=== PATIENT | female | born 1940 | race Caucasian/White ===

== ENCOUNTER 2017-12-01 18:27 | Emergency (ER) | payer MEDICARE, OTHER ==
[2017-12-01 19:05] VITALS: BP 153/76; PULSE 74; RESP 18; TEMP 97.8
[2017-12-01] MEDS ORDERED: traMADol 50 MG TAB PO STA (19:23)
--- NOTE | 2017-12-01 20:02 | ED ---
Lower Extremity Injury HPI - General Chief Complaint: Extremity Injury, Lower Stated Complaint: Right leg pain Time Seen by Provider: 12/01/17 19:15 Source: patient, family, RN notes reviewed Mode of arrival: wheelchair Limitations: no limitations - History of Present Illness Initial Comments: 76-year-old female presents emergency Department chief complaint of right knee pain. Patient states has been bothersome over the last 1 week with no injury. Patient states that she feels some fullness and pain behind her right knee. Patient has no history DVT denies any trauma. Patient does admit that she had a arthritis. Patient states she recently had some right leg pain that she had physical therapy for. Patient denies any paresthesias. Patient denies any redness to her knee, fever, chills. Patient denies any other complaints at this time. She does admit that she has chronic back issues. - Related Data Previous Rx's Medication Instructions Recorded predniSONE 50 mg PO DAILY #5 tab 12/01/17 Allergies Allergy/AdvReac Type Severity Reaction Status Date / Time No Known Allergies Allergy Verified 12/01/17 19:00 Review of Systems ROS Statement: Those systems with pertinent positive or pertinent negative responses have been documented in the HPI. ROS Other: All systems not noted in ROS Statement are negative. Past Medical History Past Medical History: Heart Failure, Hyperlipidemia, Hypertension, Osteoarthritis (OA) History of Any Multi-Drug Resistant Organisms: None Reported Past Surgical History: No Surgical Hx Reported Past Psychological History: No Psychological Hx Reported Smoking Status: Former smoker Past Alcohol Use History: None Reported Past Drug Use History: None Reported General Exam Limitations: no limitations General appearance: alert, in no apparent distress Head exam: Present: atraumatic, normocephalic, normal inspection Eye exam: Present: normal appearance, PERRL, EOMI. Absent: scleral icterus, conjunctival injection, periorbital swelling Neck exam: Present: normal inspection, full ROM. Absent: tenderness, meningismus, lymphadenopathy Respiratory exam: Present: normal lung sounds bilaterally. Absent: respiratory distress, wheezes, rales, rhonchi, stridor Cardiovascular Exam: Present: regular rate, normal rhythm, normal heart sounds. Absent: systolic murmur, diastolic murmur, rubs, gallop, clicks Extremities exam: Present: other (Right knee and she does have some pain with range of motion though no erythema no significant swelling, neurovascular intact patient does have some pain with logrolling of her leg into her hip but she has good range of motion) Neurological exam: Present: alert, CN II-XII intact, reflexes normal. Absent: motor sensory deficit Course Vital Signs 12/01/17 19:00 Temperature 97.8 F Pulse Rate 74 Respiratory 18 Rate Blood Pressure 153/76 O2 Sat by Pulse 98 Oximetry Medical Decision Making - Medical Decision Making 76 year-old female presents emergency department for right knee pain. Patient ultrasound x-ray shows osteoarthritis and she does have small fluid collection. 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 Patient will be started on tramadol and follow-up with Dr. Newton her orthopedic physician. Disposition Clinical Impression: Right knee pain, Osteoarthritis Disposition: HOME SELF-CARE Condition: Stable Instructions: Knee Pain (ED) Additional Instructions: Please return to the Emergency Department if symptoms worsen or any other concerns. Prescriptions: predniSONE 50 mg PO DAILY #5 tab Is patient prescribed a controlled substance at d/c from ED?: No Referrals: None,Stated [Primary Care Provider] - 1-2 days Jorge Luis Grey MD [STAFF PHYSICIAN] - 1-2 days Time of Disposition: 20:34
--- NOTE | 2017-12-01 20:07 | US ---
EXAMINATION TYPE: US venous doppler duplex LE RT DATE OF EXAM: 12/01/2017 7:56 PM COMPARISON: NONE CLINICAL HISTORY: Pain. SIDE PERFORMED: Right TECHNIQUE: The lower extremity deep venous system is examined utilizing real time linear array sonog luiz with graded compression, doppler sonography and color-flow sonography. VESSELS IMAGED: External Iliac Vein (EIV) Common Femoral Vein Deep Femoral Vein Greater Saphenous Vein * Femoral Vein Popliteal Vein Small Saphenous Vein * Proximal Calf Veins (* superficial vessels) Patient unable to adduct leg. Technically difficult. Right Leg: Negative for DVT IMPRESSION: No evidence of deep venous thrombosis in the right leg.
--- NOTE | 2017-12-01 20:09 | XR ---
EXAMINATION TYPE: XR knee complete RT DATE OF EXAM: 12/01/2017 COMPARISON: NONE HISTORY: Knee pain TECHNIQUE: 3 views FINDINGS: I see no fracture nor dislocation. There is mild spurring in the patella. There is no sign of knee joint effusion. There is vascular calcification. IMPRESSION: No acute abnormality of the right knee.
[2017-12-01] MEDS ORDERED: traMADol 50 MG STARTER PACK 3 TAB BTL PO STA (20:34)
== END 2017-12-01 20:51 | disposition home or self-care (01) ==
LOC: EC 18:27
DX: M17.11 Unilateral primary osteoarthritis, right knee (principal); M79.604 Pain in right leg; Z87.891 Personal history of nicotine dependence
CPT/HCPCS: 99284

== ENCOUNTER 2018-03-02 15:30 | Inpatient (IN) | payer MEDICARE, OTHER ==
--- NOTE | 2018-03-02 16:00 | ED ---
General Adult HPI <Shannan Fonseca - Last Filed: 03/02/18 18:14> <Kristopher Zhu - Last Filed: 03/02/18 21:12> - General Stated complaint: knee pain Time Seen by Provider: 03/02/18 15:38 - History of Present Illness Initial comments: Patient is a 77-year-old female who presents the emergency department with complaint of bilateral knee pain. She reports the right knee has had a cyst in the past for which she came to the emergency department in November of last year. She reports that the left knee began hurting about a week ago. She denies any trauma or injury. Denies any history of blood clots. Patient denies any recent fever, chills, shortness of breath, chest pain, back pain, abdominal pain, nausea or vomiting, numbness or tingling, headaches or visual changes, or any other complaints. (Shannan Fonseca) - Related Data Previous Rx's Medication Instructions Recorded predniSONE 50 mg PO DAILY #5 tab 12/01/17 Naproxen [Naprosyn] 500 mg PO BID #20 tablet 03/02/18 Allergies Allergy/AdvReac Type Severity Reaction Status Date / Time No Known Allergies Allergy Verified 03/02/18 15:59 Review of Systems ROS Other: All systems not noted in ROS Statement are negative. <Shannan Fonseca - Last Filed: 03/02/18 18:14> ROS Other: All systems not noted in ROS Statement are negative. <Kristopher Zhu - Last Filed: 03/02/18 21:12> ROS Statement: Those systems with pertinent positive or pertinent negative responses have been documented in the HPI. Past Medical History Past Medical History: Heart Failure, Hyperlipidemia, Hypertension, Osteoarthritis (OA) History of Any Multi-Drug Resistant Organisms: None Reported Past Surgical History: No Surgical Hx Reported Past Psychological History: No Psychological Hx Reported Smoking Status: Former smoker Past Alcohol Use History: None Reported Past Drug Use History: None Reported <Shannan Fonseca - Last Filed: 03/02/18 18:14> General Exam General appearance: alert, in no apparent distress Head exam: Present: atraumatic, normocephalic Eye exam: Present: normal appearance Respiratory exam: Present: normal lung sounds bilaterally. Absent: wheezes, rales, rhonchi Cardiovascular Exam: Present: regular rate, normal rhythm Extremities exam: Present: full ROM, tenderness (Bilateral knees.), normal capillary refill, calf tenderness (Bilateral.) Skin exam: Present: warm, dry <Shannan Fonseca - Last Filed: 03/02/18 18:14> Vital Signs 03/02/18 03/02/18 03/02/18 15:56 17:55 20:29 Temperature 97.4 F L 97.4 F L 97.6 F Pulse Rate 103 H 88 94 Respiratory 18 18 18 Rate Blood Pressure 91/54 113/57 113/56 O2 Sat by Pulse 94 L 96 95 Oximetry Medical Decision Making <Shannan Fonseca - Last Filed: 03/02/18 18:14> - Lab Data Result diagrams: 03/02/18 19:06 03/02/18 19:06 - Radiology Data Radiology results: image reviewed (Chest x-ray shows left upper lobe infiltrate. ) <Kristopher Zhu - Last Filed: 03/02/18 21:12> - Medical Decision Making X-ray of bilateral knees reveals mild bilateral medial compartment degenerative joint changes. Ultrasound venous doppler duplex bilateral lower extremities negative for DVT. Will prescribe naproxen. Will refer to orthopedics. Case discussed in detail with attending physician Dr. Zhu. (Shannan Fonseca) Patient was reevaluated by myself, Dr. Zhu. Patient has difficult time describing her symptoms. Patient complains of right knee pain which is somewhat chronic. Patient states she is having difficulty walking. Patient is unclear if an dilatory problems are from weakness or pain. Patient does have minimal bilateral upper extremity erythema near the humerus region. It does feel somewhat warm. No other signs of rash. Patient does not have a fever at this time. Right knee without significant swelling. No warmth or erythema. There is mild tenderness. Ultrasound and x-rays are negative. Further evaluation showed some elevation of white blood cell count. Further elevation shows left upper lobe infiltrate on chest x-ray. Patient does meet sepsis criteria diagnosed at 9:11 PM. Blood culture and IV antibiotics and lactic acid will all be ordered. Patient and family are updated. Case was discussed in detail with practitioner melanie Arguelles for Dr. Ferreira, who will admit for hospital call. (Kristopher Zhu) - Lab Data Lab Results 03/02/18 03/02/18 03/02/18 Range/Units 19:06 19:06 19:06 WBC 16.9 H (3.8-10.6) k/uL RBC 4.43 (3.80-5.40) m/uL Hgb 14.3 (11.4-16.0) gm/dL Hct 41.8 (34.0-46.0) % MCV 94.3 (80.0-100.0) fL MCH 32.3 (25.0-35.0) pg MCHC 34.3 (31.0-37.0) g/dL RDW 13.3 (11.5-15.5) % Plt Count 132 L (150-450) k/uL Neutrophils % 90 % Lymphocytes % 4 % Monocytes % 4 % Eosinophils % 1 % Basophils % 0 % Neutrophils # 15.2 H (1.3-7.7) k/uL Lymphocytes # 0.7 L (1.0-4.8) k/uL Monocytes # 0.6 (0-1.0) k/uL Eosinophils # 0.2 (0-0.7) k/uL Basophils # 0.1 (0-0.2) k/uL Sodium 139 (137-145) mmol/L Potassium 4.0 (3.5-5.1) mmol/L Chloride 106 (98-107) mmol/L Carbon Dioxide 24 (22-30) mmol/L Anion Gap 9 mmol/L BUN 34 H (7-17) mg/dL Creatinine 1.52 H (0.52-1.04) mg/dL Est GFR (CKD-EPI)AfAm 37 (>60 ml/min/1.73 sqM) Est GFR (CKD-EPI)NonAf 32 (>60 ml/min/1.73 sqM) Glucose 136 H (74-99) mg/dL Calcium 9.6 (8.4-10.2) mg/dL Total Bilirubin 1.1 (0.2-1.3) mg/dL AST 18 (14-36) U/L ALT 26 (9-52) U/L Alkaline Phosphatase 43 (38-126) U/L C-Reactive Protein 62.7 H (<10.0) mg/L Total Protein 7.5 (6.3-8.2) g/dL Albumin 4.2 (3.5-5.0) g/dL Disposition Is patient prescribed a controlled substance at d/c from ED?: No Time of Disposition: 18:12 <Shannan Fonseca - Last Filed: 03/02/18 18:14> Decision Time: 21:12 <Kristopher Zhu - Last Filed: 03/02/18 21:12> Clinical Impression: Knee pain, bilateral, Pneumonia, Sepsis Disposition: ADMITTED IP TO THIS [facility] Condition: Good Instructions (If sedation given, give patient instructions): Knee Pain (ED) Additional Instructions: Follow-up with your PCP in 1-2 days. Follow-up with orthopedics in 1-2 days. Return to the emergency department if your symptoms worsen or other concerns. Prescriptions: Naproxen [Naprosyn] 500 mg PO BID #20 tablet Referrals: Ibrahima Baker MD [REFERRING] - 1-2 days None,Stated [Primary Care Provider] - 1-2 days Bc Gambino, [Medical Doctor] - 1-2 days Addendum entered and electronically signed by Shannan Fonseca PA-C 20:06: When the nurse brought in the discharge paperwork, the patient's family stated that they were concerned about taking the patient home (she lives with her daughter) as she cannot walk (she normally walks with a walker). The patient was not discharged. She was given Toradol for pain, which the patient reported helped. Addendum entered and electronically signed by Shannan Fonseca PA-C 20:31: Patient will be admitted with consult to orthopedics, social work and PT/OT.
--- NOTE | 2018-03-02 16:17 | XR ---
EXAMINATION TYPE: XR knee complete bilateral DATE OF EXAM: 03/02/2018 COMPARISON: Right knee 12/01/2017 HISTORY: Pain bilateral knees TECHNIQUE: 3 views each knee FINDINGS: Right knee: Mild narrowing of the medial compartment joint space is present. No acute fractures are e vident. No joint effusion is evident. Vascular calcification is noted. Left knee: Mild narrowing of the medial compartment joint space is present. No acute fractures are ev ident. Vascular calcification is present. No joint effusion is evident. IMPRESSION: 1. Mild bilateral medial compartment degenerative joint changes.
--- NOTE | 2018-03-02 17:22 | US ---
EXAMINATION TYPE: US venous doppler duplex LE BI DATE OF EXAM: 03/02/2018 5:10 PM COMPARISON: US CLINICAL HISTORY: Pain. Bilateral leg pain SIDE PERFORMED: Bilateral TECHNIQUE: The lower extremity deep venous system is examined utilizing real time linear array sonog luiz with graded compression, doppler sonography and color-flow sonography. VESSELS IMAGED: External Iliac Vein (EIV) Common Femoral Vein Deep Femoral Vein Greater Saphenous Vein * Femoral Vein Popliteal Vein Proximal Calf Veins (* superficial vessels) Right Leg: Negative for DVT Left Leg: Negative for DVT IMPRESSION: No evidence of deep venous thrombosis in both legs.
[2018-03-02] MEDS ORDERED: KETOROLAC 60 MG/2 ML VIAL IM STA (18:42)
[2018-03-02] MEDS ORDERED: KETOROLAC 30 MG/ML 1 ML VIAL IVP STA (19:11)
[2018-03-02 19:20] LABS: Basophils # (A) 0.1 k/uL (0-0.2); Basophils % (A) 0 %; Eosinophils # (A) 0.2 k/uL (0-0.7); Eosinophils % (A) 1 %; HCT 41.8 % (34.0-46.0); HGB 14.3 gm/dL (11.4-16.0); Lymphocytes # (A) 0.7 k/uL (1.0-4.8); Lymphocytes % (A) 4 %; MCH 32.3 pg (25.0-35.0); MCHC 34.3 g/dL (31.0-37.0); MCV 94.3 fL (80.0-100.0); Mean Platelet Volume 8.1; Monocytes # (A) 0.6 k/uL (0-1.0); Monocytes % (A) 4 %; Neutrophils # (A) 15.2 k/uL (1.3-7.7); Neutrophils % (A) 90 %; Platelet Count 132 k/uL (150-450); RBC 4.43 m/uL (3.80-5.40); RDW 13.3 % (11.5-15.5); WBC 16.9 k/uL (3.8-10.6)
[2018-03-02 19:47] LABS: Albumin 4.2 g/dL (3.5-5.0); Calcium 9.6 mg/dL (8.4-10.2); Total Bilirubin 1.1 mg/dL (0.2-1.3); Total Protein 7.5 g/dL (6.3-8.2)
[2018-03-02] MEDS ORDERED: ACETAMINOPHEN TAB 325 MG TAB PO PRN (20:15)
[2018-03-02] MEDS ORDERED: NALOXONE 0.4 MG/ML 1 ML VIAL IV PRN (20:15)
--- NOTE | 2018-03-02 20:43 | XR ---
EXAMINATION TYPE: XR chest 2V DATE OF EXAM: 03/02/2018 COMPARISON: NONE HISTORY: Chest pain TECHNIQUE: Frontal and lateral views of the chest are obtained. FINDINGS: There is no heart failure nor confluent pneumonic infiltrate. Costophrenic angles are steven r. There is coarsening of the lung markings. There is some mild infiltrate above the left pulmonary h ilum. Thoracic aorta is atheromatous. IMPRESSION: Mild pulmonary fibrosis. Mild left upper lobe pneumonia.
[2018-03-02] MEDS: SODIUM CHLORIDE 0.9% 1,000 ML IV SCH (21:02)
[2018-03-02] MEDS ORDERED: PNEUMONIA PROTOCOL UTILIZED 1 EACH MISC PO PRN (21:12)
[2018-03-02] MEDS ORDERED: AZITHROMYCIN 500 MG in SODIUM CHLORIDE 0.9% 250 ML IVPB STA (21:16)
[2018-03-02] MEDS ORDERED: SODIUM CHLORIDE 0.9% 1,000 ML IV STA ×2 (22:35)
[2018-03-02] MEDS ORDERED: SODIUM CHLORIDE 0.9% 500 ML 600 ML IV STA (22:35)
--- NOTE | 2018-03-02 22:40 | ED ---
Medical Decision Making - Medical Decision Making Call for elevated lactic acid. Patient was reevaluated. No significant change from previous evaluation. IV fluid bolus was ordered and started at 10:25 PM. - Lab Data Result diagrams: 03/02/18 19:06 03/02/18 19:06 Lab Results 03/02/18 03/02/18 03/02/18 Range/Units 19:06 19:06 19:06 WBC 16.9 H (3.8-10.6) k/uL RBC 4.43 (3.80-5.40) m/uL Hgb 14.3 (11.4-16.0) gm/dL Hct 41.8 (34.0-46.0) % MCV 94.3 (80.0-100.0) fL MCH 32.3 (25.0-35.0) pg MCHC 34.3 (31.0-37.0) g/dL RDW 13.3 (11.5-15.5) % Plt Count 132 L (150-450) k/uL Neutrophils % 90 % Lymphocytes % 4 % Monocytes % 4 % Eosinophils % 1 % Basophils % 0 % Neutrophils # 15.2 H (1.3-7.7) k/uL Lymphocytes # 0.7 L (1.0-4.8) k/uL Monocytes # 0.6 (0-1.0) k/uL Eosinophils # 0.2 (0-0.7) k/uL Basophils # 0.1 (0-0.2) k/uL ESR (0-20) mm/hr Sodium 139 (137-145) mmol/L Potassium 4.0 (3.5-5.1) mmol/L Chloride 106 (98-107) mmol/L Carbon Dioxide 24 (22-30) mmol/L Anion Gap 9 mmol/L BUN 34 H (7-17) mg/dL Creatinine 1.52 H (0.52-1.04) mg/dL Est GFR (CKD-EPI)AfAm 37 (>60 ml/min/1.73 sqM) Est GFR (CKD-EPI)NonAf 32 (>60 ml/min/1.73 sqM) Glucose 136 H (74-99) mg/dL Calcium 9.6 (8.4-10.2) mg/dL Total Bilirubin 1.1 (0.2-1.3) mg/dL AST 18 (14-36) U/L ALT 26 (9-52) U/L Alkaline Phosphatase 43 (38-126) U/L C-Reactive Protein 62.7 H (<10.0) mg/L Total Protein 7.5 (6.3-8.2) g/dL Albumin 4.2 (3.5-5.0) g/dL 03/02/18 Range/Units 19:06 WBC (3.8-10.6) k/uL RBC (3.80-5.40) m/uL Hgb (11.4-16.0) gm/dL Hct (34.0-46.0) % MCV (80.0-100.0) fL MCH (25.0-35.0) pg MCHC (31.0-37.0) g/dL RDW (11.5-15.5) % Plt Count (150-450) k/uL Neutrophils % % Lymphocytes % % Monocytes % % Eosinophils % % Basophils % % Neutrophils # (1.3-7.7) k/uL Lymphocytes # (1.0-4.8) k/uL Monocytes # (0-1.0) k/uL Eosinophils # (0-0.7) k/uL Basophils # (0-0.2) k/uL ESR 13 (0-20) mm/hr Sodium (137-145) mmol/L Potassium (3.5-5.1) mmol/L Chloride (98-107) mmol/L Carbon Dioxide (22-30) mmol/L Anion Gap mmol/L BUN (7-17) mg/dL Creatinine (0.52-1.04) mg/dL Est GFR (CKD-EPI)AfAm (>60 ml/min/1.73 sqM) Est GFR (CKD-EPI)NonAf (>60 ml/min/1.73 sqM) Glucose (74-99) mg/dL Calcium (8.4-10.2) mg/dL Total Bilirubin (0.2-1.3) mg/dL AST (14-36) U/L ALT (9-52) U/L Alkaline Phosphatase (38-126) U/L C-Reactive Protein (<10.0) mg/L Total Protein (6.3-8.2) g/dL Albumin (3.5-5.0) g/dL Disposition Clinical Impression: Knee pain, bilateral, Pneumonia, Sepsis Disposition: ADMITTED IP TO THIS HOSP Condition: Good Is patient prescribed a controlled substance at d/c from ED?: No Procedures - Sepsis Sepsis Focused Exam #1 Time Sepsis Criteria Met: 21:11 Sepsis Focused Exam Date: 03/02/18 Sepsis Focused Exam Time: 22:39 Sepsis Focused Exam Complete: Yes Vital Signs & RN Notes Reviewed: Yes Capillary Refill: < 2 Seconds: Fingers, Toes Peripheral Pulses: Normal: Radial (R), Radial (L) Skin Color: Normal for Patient, Erythema (Patient still has some mild erythema of bilateral upper arm) Respiratory Exam: normal lung sounds Cardiovascular Exam: regular rate, normal rhythm
[2018-03-03 00:54] LABS: Appearance,Urine Cloudy (Clear); Bacteria,Urine Occasional /hpf; Bilirubin,Urine Negative (Negative); Blood,Urine Trace (Negative); Color,Urine Yellow; Glucose,Urine (UA) Negative (Negative); Ketones,Urine Negative (Negative); Leukocyte Esterase,Urine Moderate (Negative); Mucus,Urine Rare /hpf; Nitrite,Urine Negative (Negative); Protein,Urine Negative (Negative); RBC,Urine 1 /hpf (0-5); Specific Gravity,Urine 1.013 (1.001-1.035); Squamous Epithelial Cell,Urine 6 /hpf (0-4); Urobilinogen,Urine <2.0 mg/dL (<2.0); WBC,Urine 14 /hpf (0-5)
[2018-03-03 01:17] VITALS: BMI 31.9
[2018-03-03] MEDS: SODIUM CHLORIDE 0.9% 1,000 ML IV SCH ×5 (01:21→18:52)
[2018-03-03 07:12] LABS: Basophils % (A) 0 %; Eosinophils % (A) 0 %; HCT 35.3 % (34.0-46.0); HGB 11.7 gm/dL (11.4-16.0); Lymphocytes # (A) 1.1 k/uL (1.0-4.8); Lymphocytes % (A) 8 %; MCH 31.6 pg (25.0-35.0); MCHC 33.1 g/dL (31.0-37.0); MCV 95.4 fL (80.0-100.0); Mean Platelet Volume 7.6; Monocytes # (A) 0.6 k/uL (0-1.0); Monocytes % (A) 5 %; Neutrophils # (A) 10.7 k/uL (1.3-7.7); Neutrophils % (A) 85 %; Platelet Count 110 k/uL (150-450); RDW 13.1 % (11.5-15.5); WBC 12.6 k/uL (3.8-10.6)
[2018-03-03 07:34] LABS: Calcium 8.4 mg/dL (8.4-10.2); Potassium 3.8 mmol/L (3.5-5.1); Total Bilirubin 0.8 mg/dL (0.2-1.3); Total Protein 5.7 g/dL (6.3-8.2)
--- NOTE | 2018-03-03 12:24 | XR ---
EXAMINATION TYPE: XR chest 2V DATE OF EXAM: 03/03/2018 HISTORY: pneumonia. REFERENCE: Previous study dated 03/02/2018. FINDINGS: There is a worsening left upper lobe infiltrate. The heart is upper limits of normal in siz e. Pleural spaces are clear. IMPRESSION: WORSENING LEFT UPPER LOBE PNEUMONIA.
[2018-03-03] MEDS: AZITHROMYCIN 500 MG TAB PO SCH (21:49)
[2018-03-04] MEDS: SODIUM CHLORIDE 0.9% 1,000 ML IV SCH ×3 (03:24→23:26)
[2018-03-04 07:16] LABS: Basophils % (A) 0 %; Eosinophils # (A) 0.1 k/uL (0-0.7); Eosinophils % (A) 1 %; HGB 11.8 gm/dL (11.4-16.0); Lymphocytes % (A) 19 %; MCH 31.1 pg (25.0-35.0); MCHC 32.7 g/dL (31.0-37.0); MCV 95.1 fL (80.0-100.0); Mean Platelet Volume 7.7; Monocytes # (A) 0.5 k/uL (0-1.0); Monocytes % (A) 4 %; Neutrophils # (A) 7.9 k/uL (1.3-7.7); Neutrophils % (A) 74 %; Platelet Count 122 k/uL (150-450); RBC 3.79 m/uL (3.80-5.40); RDW 13.3 % (11.5-15.5); WBC 10.7 k/uL (3.8-10.6)
[2018-03-04 07:36] LABS: Calcium 8.6 mg/dL (8.4-10.2)
--- NOTE | 2018-03-04 09:16 | P.HPIM ---
History of Present Illness H&P Date: 03/03/18 68-year-old female came to ER with compensative unable to are bilaterally pain does have severe osteoarthritis of bilateral knees patient was comparing of serious fatigue lethargy patient is found to have leukocytosis no fever although chest x-ray there appears to be a pneumonia and patient is complaining of cough but unable to bring up anything. Patient used to be a smoker quit long time ago. Patient is also found to be in acute renal failure patient is presently receiving IV fluids, Lasix and the RADHA inhibitor being held patient is bit hypotensive as well. Review of Systems REVIEW OF SYSTEMS: CONSTITUTIONAL: As mentioned in HPI HEENT: No recent visual problems or hearing problems. Denied any sore throat. CARDIOVASCULAR: No chest pain, orthopnea, PND, no palpitations, no syncope. PULMONARY: No shortness of breath, no cough, no hemoptysis. GASTROINTESTINAL: No diarrhea, no nausea, no vomiting, no abdominal pain. NEUROLOGICAL: No headaches, no weakness, no numbness. HEMATOLOGICAL: Denies any bleeding or petechiae. GENITOURINARY: Denies any burning micturition, frequency, or urgency. MUSCULOSKELETAL/RHEUMATOLOGICAL: As mentioned in HPI ENDOCRINE: Denies any polyuria or polydipsia. The rest of the 14-point review of systems is negative. Past Medical History Past Medical History: Heart Failure, Hyperlipidemia, Hypertension, Osteoarthritis (OA), Pneumonia, Renal Disease, Rheumatoid Arthritis (RA) Additional Past Medical History / Comment(s): stage 4 kidney disease History of Any Multi-Drug Resistant Organisms: None Reported Past Surgical History: No Surgical Hx Reported Past Anesthesia/Blood Transfusion Reactions: No Reported Reaction Past Psychological History: No Psychological Hx Reported Smoking Status: Former smoker Past Alcohol Use History: None Reported Past Drug Use History: None Reported Medications and Allergies Home Medications Medication Instructions Recorded Confirmed Type Acetaminophen [Tylenol Arthritis] 650 mg PO DAILY 03/02/18 03/02/18 History Aspirin [[place] Aspirin EC] 81 mg PO DAILY 03/02/18 03/02/18 History Enalapril [Vasotec] 10 mg PO DAILY 03/02/18 03/02/18 History Ergocalciferol (Vitamin D2) 50,000 unit PO [id number] 03/02/18 03/02/18 History [Drisdol] Furosemide [Lasix] 40 mg PO DAILY 03/02/18 03/02/18 History Lovastatin [Mevacor] 40 mg PO HS 03/02/18 03/02/18 History Allergies Allergy/AdvReac Type Severity Reaction Status Date / Time No Known Allergies Allergy Verified 03/02/18 22:55 Physical Exam Vitals: Vital Signs Temp Pulse Resp BP Pulse Ox 03/04/18 07:49 97.6 F 87 20 170/74 94 L 03/04/18 07:44 17 03/04/18 06:25 71 17 146/67 96 03/03/18 22:27 98.3 F 71 17 135/60 96 03/03/18 16:00 96.7 F L 77 18 118/56 92 L 03/03/18 12:00 97.3 F L 70 18 115/56 94 L Intake and Output 03/03/18 03/04/18 03/04/18 22:59 06:59 14:59 Intake Total 300 550 240 Balance 300 550 240 Intake: Intake, IV Titration 300 550 Amount Sodium Chloride 0.9% 1, 300 550 000 ml @ 100 mls/hr IV . Q10H [facility] Rx#:[id number] Oral 240 Other: Voiding Method Bedpan Bedpan Bedpan Diaper Diaper Diaper # Voids 1 1 Weight 87.5 kg PHYSICAL EXAMINATION: GENERAL: The patient is alert and oriented x3, not in any acute distress. Well developed, well nourished. HEENT: Pupils are round and equally reacting to light. EOMI. No scleral icterus. No conjunctival pallor. Normocephalic, atraumatic. No pharyngeal erythema. No thyromegaly. CARDIOVASCULAR: S1 and S2 present. No murmurs, rubs, or gallops. PULMONARY: Chest is clear to auscultation, no wheezing or crackles. ABDOMEN: Soft, nontender, nondistended, normoactive bowel sounds. No palpable organomegaly. MUSCULOSKELETAL: Does have severe osteoarthritis and swelling of boththere is no signs or symptoms of septic arthritis EXTREMITIES: No cyanosis, clubbing, or pedal edema. NEUROLOGICAL: Gross neurological examination did not reveal any focal deficits. SKIN: No rashes. Results CBC & Chem 7: 03/04/18 06:40 03/04/18 06:40 Labs: Abnormal Lab Results - Last 24 Hours (Table) 03/04/18 03/04/18 Range/Units 06:40 06:40 WBC 10.7 H (3.8-10.6) k/uL RBC 3.79 L (3.80-5.40) m/uL Plt Count 122 L (150-450) k/uL Neutrophils # 7.9 H (1.3-7.7) k/uL Chloride 117 H (98-107) mmol/L Carbon Dioxide 19 L (22-30) mmol/L BUN 23 H (7-17) mg/dL Creatinine 1.10 H (0.52-1.04) mg/dL Microbiology - Last 24 Hours (Table) 03/02/18 21:28 Blood Culture - Preliminary Blood No Growth after 24 hours Thrombosis Risk Factor Assmnt - Choose All That Apply Any of the Below Risk Factors Present?: Yes Each Factor Represents 1 point: Obesity (BMI >25), Swollen legs (current) Other Risk Factors: Yes Each Risk Factor Represents 3 Points: Age 75 years or older Other congenital or acquired thrombophilia - If yes, enter type in comment: No Thrombosis Risk Factor Assessment Total Risk Factor Score: 5 Thrombosis Risk Factor Assessment Level: High Risk Assessment and Plan Plan: -Possible community-acquired right upper lobe pneumonia: Patient will be continued on Rocephin and azithromycin. -Acute renal failure: Prerenal azotemia from sepsis intravascular depletion from diuretics and RADHA inhibitor, hold off on a similar to continue with IV fluids hold off on diuretics -Bilaterally pain secondary to severe prostatitis patient has multi-joint arthritis involving the small joints of the hands. Patient may benefit from my intra-articular steroid injection because of which are orthopedic surgery was consulted for anemia -Hyperlipidemia -Hypertension patient is presently hypotensive because of which will hold off on RADHA inhibitor continue with IV fluids. Patient will need pharmacologic DVT prophylaxis
--- NOTE | 2018-03-04 09:48 | P.CNOR ---
History of Present Illness - [facility] Consult date: 03/04/18 Consult reason: other (Inability to ambulate) History of present illness: The patient is a pleasant 77-year-old female who was admitted through the emergency department with complaints of weakness and inability to ambulate. She was at home walking with her walker and felt her legs give out. She did not not fall and denies any recent injury. She states she normally gets around well with her walker and denies instability or frequent falls. She denies recent chelsey illness, fevers or chills but states that for a few weeks she has been feeling a little run down and not quite herself. She reports mild soreness in her knees but states this is at baseline. She lives at home with her daughter who works nights. Past Medical History Past Medical History: Heart Failure, Hyperlipidemia, Hypertension, Osteoarthritis (OA), Pneumonia, Renal Disease, Rheumatoid Arthritis (RA) Additional Past Medical History / Comment(s): stage 4 kidney disease History of Any Multi-Drug Resistant Organisms: None Reported Past Surgical History: No Surgical Hx Reported Past Anesthesia/Blood Transfusion Reactions: No Reported Reaction Past Psychological History: No Psychological Hx Reported Smoking Status: Former smoker Past Alcohol Use History: None Reported Past Drug Use History: None Reported Medications and Allergies Home Medications Medication Instructions Recorded Confirmed Type Acetaminophen [Tylenol Arthritis] 650 mg PO DAILY 03/02/18 03/02/18 History Aspirin [[place] Aspirin EC] 81 mg PO DAILY 03/02/18 03/02/18 History Enalapril [Vasotec] 10 mg PO DAILY 03/02/18 03/02/18 History Ergocalciferol (Vitamin D2) 50,000 unit PO [id number] 03/02/18 03/02/18 History [Drisdol] Furosemide [Lasix] 40 mg PO DAILY 03/02/18 03/02/18 History Lovastatin [Mevacor] 40 mg PO HS 03/02/18 03/02/18 History Allergies Allergy/AdvReac Type Severity Reaction Status Date / Time No Known Allergies Allergy Verified 03/02/18 22:55 Physical Examination Examination of the bilateral lower extremities reveals no gross deformity or malalignment. No ecchymosis or erythema. No tenderness palpation circumferentially around both knees. There is no significant visible or palpable effusion. She is able to actively range both knees without pain. There is no gross instability with stress. Light touch sensation is intact across the distal dermatomes without focal deficit and is symmetric bilaterally. Motor test reveals good strength with dorsiflexion and plantarflexion which is symmetric bilaterally. No clonus. Babinski testing reveals flexor response bilaterally. No pain with logroll or passive circumduction of bilateral hips. Results X-rays of bilateral knees were reviewed and interpreted from an orthopedic standpoint. These demonstrate no appreciable acute or healing fractures. No significant effusion. Mild tricompartmental degenerative changes with moderate medial joint space narrowing. Full assessment is limited due to nonweightbearing technique. Prominent vascular calcifications are noted. Impression: No acute osseous pathology - Labs Labs: Abnormal Lab Results - Last 24 Hours (Table) 03/04/18 03/04/18 Range/Units 06:40 06:40 WBC 10.7 H (3.8-10.6) k/uL RBC 3.79 L (3.80-5.40) m/uL Plt Count 122 L (150-450) k/uL Neutrophils # 7.9 H (1.3-7.7) k/uL Chloride 117 H (98-107) mmol/L Carbon Dioxide 19 L (22-30) mmol/L BUN 23 H (7-17) mg/dL Creatinine 1.10 H (0.52-1.04) mg/dL Microbiology - Last 24 Hours (Table) 03/02/18 21:28 Blood Culture - Preliminary Blood No Growth after 24 hours H & H 03/02/18 03/03/18 03/04/18 Range/Units 19:06 05:53 06:40 Hgb 14.3 11.7 11.8 (11.4-16.0) gm/dL Hct 41.8 35.3 36.0 (34.0-46.0) % Result Diagrams: 03/04/18 06:40 03/04/18 06:40 Assessment and Plan Assessment: Weakness and inability to ambulate-likely secondary to underlying sepsis/occult infection. (1) Unable to ambulate Current Visit: Yes Status: Acute Code(s): R26.2 - DIFFICULTY IN WALKING, NOT ELSEWHERE CLASSIFIED SNOMED Code(s): 854698962 Plan: I discussed the clinical and radiograph findings with the patient in detail. I do not feel that her inability to ambulate is due to primary musculoskeletal pathology but rather weakness due to an underlying systemic etiology. She is currently being treated for sepsis and acute renal failure. Barring any restrictions from the primary care team, I recommend continuing activity as tolerated. Since she is at increased risk of falls she should only get up with assist. She may weight-bear as tolerated with the assistance of a rolling walker. Continue physical therapy as she is able. Based on her exam, I do not feel she would benefit from corticosteroid injections at this time. Continue PRN oral analgesics. Thank you for allowing me to participate in the care of this patient. Bc Gambino D.O. [facility]
[2018-03-04] MEDS: LISINOPRIL 20 MG TAB PO SCH (09:51)
[2018-03-04] MEDS: FAMOTIDINE 20 MG TAB PO SCH (09:51)
--- NOTE | 2018-03-04 13:28 | P.PN ---
Subjective patient is being treated for right hilar pneumonia. Patient does have a bilateral severe osteoarthritis of the knees because of which patient is unable to relate probably will require interarticular steroid injection PT and OT evaluation possibility of discharge tomorrow to subacute rehabilitation patient is feeling much better compared to yesterday still quite a bit weak. Constitutional: Denied any fatigue denied any fever. Cardio vascular: denied any chest pain, palpitations Gastrointestinal denied any nausea vomiting Pulmonary: Denied any shortness of breath cough Neurologic denied any new focal deficits All inpatient medications were reviewed and appropriate changes in these medications as dictated in the interval history and assessment and plan. Objective - Vital Signs Vital signs: Vital Signs Temp 97.6 F 03/04/18 07:49 Pulse 87 03/04/18 07:49 Resp 20 03/04/18 07:49 BP 170/74 03/04/18 07:49 Pulse Ox 94 L 03/04/18 07:49 Intake & Output 03/03/18 03/04/18 03/04/18 18:59 06:59 18:59 Intake Total 1020 850 240 Balance 1020 850 240 Weight 87.5 kg Intake: Intake, IV Titration 800 850 Amount Sodium Chloride 0.9% 1, 800 850 000 ml @ 100 mls/hr IV . Q10H [facility] Rx#:[id number] Oral 220 240 Other: Voiding Method Bedpan Bedpan Bedpan Diaper Diaper Diaper # Voids 1 1 - Exam PHYSICAL EXAMINATION: GENERAL: The patient is alert and oriented x3, not in any acute distress. Well developed, well nourished. HEENT: Pupils are round and equally reacting to light. EOMI. No scleral icterus. No conjunctival pallor. Normocephalic, atraumatic. No pharyngeal erythema. No thyromegaly. CARDIOVASCULAR: S1 and S2 present. No murmurs, rubs, or gallops. PULMONARY: Chest is clear to auscultation, no wheezing or crackles. ABDOMEN: Soft, nontender, nondistended, normoactive bowel sounds. No palpable organomegaly. MUSCULOSKELETAL: Does have severe osteoarthritis and swelling of boththere is no signs or symptoms of septic arthritis EXTREMITIES: No cyanosis, clubbing, or pedal edema. NEUROLOGICAL: Gross neurological examination did not reveal any focal deficits. SKIN: No rashes. - Labs CBC & Chem 7: 03/04/18 06:40 03/04/18 06:40 Labs: Abnormal Lab Results - Last 24 Hours (Table) 03/04/18 03/04/18 Range/Units 06:40 06:40 WBC 10.7 H (3.8-10.6) k/uL RBC 3.79 L (3.80-5.40) m/uL Plt Count 122 L (150-450) k/uL Neutrophils # 7.9 H (1.3-7.7) k/uL Chloride 117 H (98-107) mmol/L Carbon Dioxide 19 L (22-30) mmol/L BUN 23 H (7-17) mg/dL Creatinine 1.10 H (0.52-1.04) mg/dL Microbiology - Last 24 Hours (Table) 03/02/18 21:28 Blood Culture - Preliminary Blood No Growth after 24 hours Assessment and Plan Plan: -Possible community-acquired right upper lobe pneumonia: Patient will be continued on Rocephin and azithromycin. -Acute renal failure: Prerenal azotemia from sepsis intravascular depletion from diuretics and RADHA inhibitor,patient's creatinine did improve patient will be resumed on RADHA inhibitor because of elevated blood pressure repeat the basic metabolic profile tomorrow -Hyperchloremia leading to metabolic acidosis -Hyperlipidemia -Hypertension patient is presently hypotensive because of which will hold off on RADHA inhibitor continue with IV fluids. -osteoarthritis of both knees: Intra-articular steroid injection -Generalized deconditioning Patient will need pharmacologic DVT prophylaxis
[2018-03-04] MEDS: AZITHROMYCIN 500 MG TAB PO SCH (20:35)
[2018-03-04] MEDS: HEPARIN SODIUM,PORCINE 5,000 UNIT/ML 1 ML VIAL SQ SCH (20:35)
[2018-03-04] MEDS: ATORVASTATIN 10 MG TAB PO SCH (20:35)
[2018-03-05 06:06] LABS: HCT 37.4 % (34.0-46.0); HGB 12.9 gm/dL (11.4-16.0); MCH 32.4 pg (25.0-35.0); MCHC 34.4 g/dL (31.0-37.0); MCV 94.2 fL (80.0-100.0); Mean Platelet Volume 8.3; Platelet Count 137 k/uL (150-450); RBC 3.97 m/uL (3.80-5.40)
[2018-03-05 06:26] LABS: Calcium 9.1 mg/dL (8.4-10.2); Potassium 3.6 mmol/L (3.5-5.1)
[2018-03-05] MEDS: SODIUM CHLORIDE 0.9% 1,000 ML IV SCH ×2 (09:23→10:35)
[2018-03-05] MEDS: HEPARIN SODIUM,PORCINE 5,000 UNIT/ML 1 ML VIAL SQ SCH ×2 (09:30→20:36)
[2018-03-05] MEDS: LISINOPRIL 20 MG TAB PO SCH (09:30)
[2018-03-05] MEDS: ASPIRIN 81 MG PO SCH (09:30)
[2018-03-05] MEDS: FAMOTIDINE 20 MG TAB PO SCH (09:30)
--- NOTE | 2018-03-05 12:52 | P.PN ---
Subjective patient is being treated for right hilar pneumonia. Patient does have a bilateral severe osteoarthritis of the knees because of which patient is unable to relate probably will require interarticular steroid injection PT and OT evaluation possibility of discharge tomorrow to subacute rehabilitation patient is feeling much better compared to yesterday still quite a bit weak. 03/05/2018 Patient has significant improvement in her respiratory status creatinine improved. Patient will benefit from intra-articular steroid injection, both knees. Will be discharged to subacute rehabilitation tomorrow, leukocytosis resolved, IV fluids will be discontinued Constitutional: Denied any fatigue denied any fever. Cardio vascular: denied any chest pain, palpitations Gastrointestinal denied any nausea vomiting Pulmonary: Denied any shortness of breath cough Neurologic denied any new focal deficits All inpatient medications were reviewed and appropriate changes in these medications as dictated in the interval history and assessment and plan. Objective - Vital Signs Vital signs: Vital Signs Temp 98.1 F 03/05/18 09:26 Pulse 68 03/05/18 09:26 Resp 18 03/05/18 09:26 BP 162/77 03/05/18 09:26 Pulse Ox 94 L 03/05/18 09:26 Intake & Output 03/04/18 03/05/18 03/05/18 18:59 06:59 18:59 Intake Total 1220 800 240 Output Total 2 200 Balance 1220 798 40 Weight 86 kg Intake: Intake, IV Titration 500 800 Amount Sodium Chloride 0.9% 1, 500 800 000 ml @ 100 mls/hr IV . Q10H [facility] Rx#:[id number] Oral 720 240 Output: Urine 200 Urine/Stool Mix 2 Other: Voiding Method Bedpan Bedpan Bedpan Diaper Diaper Diaper # Voids 2 1 3 # Bowel Movements 2 1 1 - Exam PHYSICAL EXAMINATION: GENERAL: The patient is alert and oriented x3, not in any acute distress. Well developed, well nourished. HEENT: Pupils are round and equally reacting to light. EOMI. No scleral icterus. No conjunctival pallor. Normocephalic, atraumatic. No pharyngeal erythema. No thyromegaly. CARDIOVASCULAR: S1 and S2 present. No murmurs, rubs, or gallops. PULMONARY: Chest is clear to auscultation, no wheezing or crackles. ABDOMEN: Soft, nontender, nondistended, normoactive bowel sounds. No palpable organomegaly. MUSCULOSKELETAL: Does have severe osteoarthritis and swelling of boththere is no signs or symptoms of septic arthritis EXTREMITIES: No cyanosis, clubbing, or pedal edema. NEUROLOGICAL: Gross neurological examination did not reveal any focal deficits. SKIN: No rashes. - Labs CBC & Chem 7: 03/05/18 05:04 03/05/18 05:04 Labs: Abnormal Lab Results - Last 24 Hours (Table) 03/05/18 03/05/18 Range/Units 05:04 05:04 Plt Count 137 L (150-450) k/uL Chloride 116 H (98-107) mmol/L Creatinine 1.06 H (0.52-1.04) mg/dL Microbiology - Last 24 Hours (Table) 03/02/18 21:28 Blood Culture - Preliminary Blood No Growth after 48 hours Assessment and Plan Plan: - community-acquired right upper lobe pneumonia: Patient will be continued on Rocephin and azithromycin. Improved now -Acute renal failure: Prerenal azotemia from sepsis intravascular depletion from diuretics and RADHA inhibitor,patient's creatinine did improve patient will be resumed on RADHA inhibitor because of elevated blood pressure , IV fluids will be discontinued now. -Hyperchloremia leading to metabolic acidosis, due to IV fluids which are being discontinued at this time -Hyperlipidemia -Hypertension patient is presently hypotensive because of which will hold off on RADHA inhibitor . -osteoarthritis of both knees: Intra-articular steroid injection as mentioned above -Generalized deconditioning: Patient will be discharged to subacute rehabilitation tomorrow Patient will need pharmacologic DVT prophylaxis
--- NOTE | 2018-03-05 19:38 | P.PN ---
Progress Note - Text Progress Note Date: 03/05/18 Progress Note - Orthopedic Surgery S: Patient states she's doing better. She was able to work with PT - was up to [facility] [place] [place] and performed limited ambulation in the room. Reports continued feelings of weakness and generalized pain (she specifically cites her hands). She denies significant knee pain - she states her pain and functional level (with regard to her knees) are at baseline and says they are not bothering her. Overall, she notes clinical improvement and is eager to discharge. O: PE - bilateral LE Bilateral knees show no erythema, calor or effusion No focal tenderness to palpation or significant joint line tenderness. No pain with AROM 0-110 degrees Pt is able to actively extend both knees fully without palpable crepitus. No pain or gross laxity with collateral stress. A: Moderate osteoarthritis of bilateral knees Physiologic weakness secondary to sepsis, community acquired pneumonia and acute renal failure P: I reviewed the clinical and radiographic findings with the patient in detail. Her MSK exam is benign and the patient does not feel her knees are contributing to her ambulation difficulty. We discussed the option of performing corticosteroid injections including the relative risks & benefits. Based on her description of her symptoms and present physical exam, I do not feel she would find significant benefit from injections at this time. She expressed understanding and agreement and is not interested in an further treatment for her knees at this time. She may continue activity as tolerated - recommend continued fall precautions and ambulation with assist only until strength returns She will likely benefit from continued PT/OT at rehab for strengthening and gait training. Ok to DC to [facility] from ortho standpoint.. Based on her present symptoms, no need for formal follow up. However, if she experiences knee pain in the future, she was encouraged to call for a follow up evaluation. Thank you for allowing me to participate in this patient's care. Bc Gambino D.O. [facility]
[2018-03-05] MEDS: AZITHROMYCIN 500 MG TAB PO SCH (20:35)
[2018-03-05] MEDS: ATORVASTATIN 10 MG TAB PO SCH (20:35)
[2018-03-06] MEDS: ASPIRIN 81 MG PO SCH (08:59)
[2018-03-06] MEDS: FAMOTIDINE 20 MG TAB PO SCH (08:59)
[2018-03-06] MEDS: HEPARIN SODIUM,PORCINE 5,000 UNIT/ML 1 ML VIAL SQ SCH ×2 (08:59→20:41)
[2018-03-06] MEDS: LISINOPRIL 20 MG TAB PO SCH (08:59)
[2018-03-06] MEDS: METOPROLOL TARTRATE 25 MG TAB PO SCH ×2 (11:05→20:41)
--- NOTE | 2018-03-06 15:15 | P.PN ---
Subjective patient is being treated for right hilar pneumonia. Patient does have a bilateral severe osteoarthritis of the knees because of which patient is unable to relate probably will require interarticular steroid injection PT and OT evaluation possibility of discharge tomorrow to subacute rehabilitation patient is feeling much better compared to yesterday still quite a bit weak. 03/05/2018 Patient has significant improvement in her respiratory status creatinine improved. Patient will benefit from intra-articular steroid injection, both knees. Will be discharged to subacute rehabilitation tomorrow, leukocytosis resolved, IV fluids will be discontinued 03/06/2018 patient is doing much better patient's creatinine improved. Patient will follow with the orthopedic surgery as an outpatient Constitutional: Denied any fatigue denied any fever. Cardio vascular: denied any chest pain, palpitations Gastrointestinal denied any nausea vomiting Pulmonary: Denied any shortness of breath cough Neurologic denied any new focal deficits All inpatient medications were reviewed and appropriate changes in these medications as dictated in the interval history and assessment and plan. Objective - Vital Signs Vital signs: Vital Signs Temp 97.6 F 03/06/18 08:25 Pulse 57 L 03/06/18 12:20 Resp 17 03/06/18 12:20 BP 162/75 03/06/18 12:20 Pulse Ox 95 03/06/18 12:20 Intake & Output 03/05/18 03/06/18 03/06/18 18:59 06:59 18:59 Intake Total 960 240 480 Output Total 200 Balance 760 240 480 Weight 85.5 kg Intake: Oral 960 240 480 Output: Urine 200 Other: Voiding Method Bedpan Bedside Commode Diaper # Voids 3 1 # Bowel Movements 1 - Exam PHYSICAL EXAMINATION: GENERAL: The patient is alert and oriented x3, not in any acute distress. Well developed, well nourished. HEENT: Pupils are round and equally reacting to light. EOMI. No scleral icterus. No conjunctival pallor. Normocephalic, atraumatic. No pharyngeal erythema. No thyromegaly. CARDIOVASCULAR: S1 and S2 present. No murmurs, rubs, or gallops. PULMONARY: Chest is clear to auscultation, no wheezing or crackles. ABDOMEN: Soft, nontender, nondistended, normoactive bowel sounds. No palpable organomegaly. MUSCULOSKELETAL: Does have severe osteoarthritis and swelling of boththere is no signs or symptoms of septic arthritis EXTREMITIES: No cyanosis, clubbing, or pedal edema. NEUROLOGICAL: Gross neurological examination did not reveal any focal deficits. SKIN: No rashes. - Labs CBC & Chem 7: 03/05/18 05:04 03/05/18 05:04 Labs: Microbiology - Last 24 Hours (Table) 03/02/18 21:28 Blood Culture - Preliminary Blood No Growth after 72 hours Assessment and Plan Plan: - community-acquired right upper lobe pneumonia: Patient will be continued on Rocephin and azithromycin. Improved now -Acute renal failure: Prerenal azotemia from sepsis intravascular depletion from diuretics and RADHA inhibitor,patient's creatinine did improve patient will be resumed on RADHA inhibitor because of elevated blood pressure , IV fluids will be discontinued now. -Hyperchloremia leading to metabolic acidosis, due to IV fluids which are being discontinued at this time -Hyperlipidemia -Hypertension patient is presently hypotensive because of which will hold off on RADHA inhibitor . -osteoarthritis of both knees: Intra-articular steroid injection as mentioned above -Generalized deconditioning: Patient will be discharged to subacute rehabilitation tomorrow Patient will need pharmacologic DVT prophylaxis
[2018-03-06] MEDS: AZITHROMYCIN 500 MG TAB PO SCH (20:41)
[2018-03-06] MEDS: ATORVASTATIN 10 MG TAB PO SCH (20:41)
[2018-03-07] MEDS: METOPROLOL TARTRATE 25 MG TAB PO SCH (08:00)
[2018-03-07] MEDS: FAMOTIDINE 20 MG TAB PO SCH (08:00)
[2018-03-07] MEDS: ASPIRIN 81 MG PO SCH (08:00)
[2018-03-07] MEDS: LISINOPRIL 20 MG TAB PO SCH (08:00)
[2018-03-07] MEDS: HEPARIN SODIUM,PORCINE 5,000 UNIT/ML 1 ML VIAL SQ SCH (08:01)
[2018-03-07 08:13] VITALS: BP 179/76; PULSE 65; RESP 18; TEMP 97.2
--- NOTE | 2018-03-07 10:42 | P.DS ---
Providers Date of admission: 03/02/18 21:12 Expected date of discharge: 03/07/18 Attending physician: Anita Perez Consults: 03/02/18 20:19 Consult Physician Urgent Consulting Provider: Bc Gambino Consult Reason/Comments: Unable to walk. Bilateral knee pain. Do you want consulting provider notified?: Yes Primary care physician: Stated None Hospital Course: Final Diagnoses: - Community-acquired right upper lobe pneumonia -Acute renal failure: Prerenal azotemia from sepsis intravascular depletion from diuretics and RADHA inhibitor, RADHA inhibitor initially held, improving -Hyperchloremia leading to metabolic acidosis, due to IV fluid hydration -Hyperlipidemia -osteoarthritis of both knees -Generalized deconditioning Hospital course: This is a pleasant 77-year-old female treated for right hilar pneumonia. Patient does have a bilateral severe osteoarthritis of the knees. Maintained on IV antibiotics. Evaluated by orthopedics ,corticosteroid steroid injections discussed, not recommended at this time. Maintain fall precautions, ambulation with assist. Significant clinical improvement. Patient is being discharged to subacute rehab in a stable condition with guarded prognosis. EXAMINATION: GENERAL: The patient is alert and oriented x3, not in any acute distress. Well developed, well nourished. CARDIOVASCULAR: S1 and S2 present. No murmurs, rubs, or gallops. PULMONARY: Chest is clear to auscultation, no wheezing or crackles. ABDOMEN: Soft, nontender, nondistended, normoactive bowel sounds. No palpable organomegaly. MUSCULOSKELETAL: Does have severe osteoarthritis,no signs or symptoms of septic arthritis EXTREMITIES: No cyanosis, clubbing, or pedal edema. NEUROLOGICAL: Gross neurological examination did not reveal any focal deficits. SKIN: No rashes. The impression and plan of care has been dictated as directed. : I performed a history and examination of this patient, discussed the same with the dictator. I agree with the dictator's note ,documented as a scribe. Any additional findings or plans will be noted. Time taken: 35 minutes Patient Condition at Discharge: Stable Plan - Discharge Summary Discharge Rx Participant: No New Discharge Prescriptions: New Famotidine [Pepcid] 20 mg PO DAILY tab Metoprolol Tartrate [Lopressor] 25 mg PO BID tab Cefuroxime Axetil [Ceftin] 500 mg PO BID #14 tab traMADol HCL [Ultram] 50 mg PO Q4HR PRN 3 Days #18 tab PRN Reason: Pain Continue Lovastatin [Mevacor] 40 mg PO HS Ergocalciferol (Vitamin D2) [Drisdol] 50,000 unit PO [id number] Enalapril [Vasotec] 10 mg PO DAILY Aspirin [[place] Aspirin EC] 81 mg PO DAILY Acetaminophen [Tylenol Arthritis] 650 mg PO DAILY Discontinued Furosemide [Lasix] 40 mg PO DAILY Discharge Medication List Acetaminophen [Tylenol Arthritis] 650 mg PO DAILY 03/02/18 [History] Aspirin [[place] Aspirin EC] 81 mg PO DAILY 03/02/18 [History] Enalapril [Vasotec] 10 mg PO DAILY 03/02/18 [History] Ergocalciferol (Vitamin D2) [Drisdol] 50,000 unit PO [id number] 03/02/18 [History] Lovastatin [Mevacor] 40 mg PO HS 03/02/18 [History] Cefuroxime Axetil [Ceftin] 500 mg PO BID #14 tab 03/06/18 [Rx] Famotidine [Pepcid] 20 mg PO DAILY tab 03/06/18 [Rx] Metoprolol Tartrate [Lopressor] 25 mg PO BID tab 03/06/18 [Rx] traMADol HCL [Ultram] 50 mg PO Q4HR PRN 3 Days #18 tab 03/06/18 [Rx] Follow up Appointment(s)/Referral(s): Ibrahima Baker MD [REFERRING] - 3 Days Bc Gambino DO [Medical Doctor] - 3 Days None,Stated [Primary Care Provider] - 1-2 days Patient Instructions/Handouts: Knee Pain (ED) Activity/Diet/Wound Care/Special Instructions: ECF Follow-up with your PCP in 1-2 days. Follow-up with orthopedics in 1-2 days. Return to the emergency department if your symptoms worsen or other concerns. Discharge Disposition: TRANSFER TO SNF/ECF
== END 2018-03-07 14:56 | DRG 871 ==
LOC: EC 15:30 → 3NMEDONC 21:12 → OBSVTOIN 21:12 → 3SCARD 03-03 00:56 → 4MS4W 03-06 22:25
PROVIDERS: ADMIT Internal Medicine; ATTEND Internal Medicine
DX: A41.9 Sepsis, unspecified organism (principal); J18.9 Pneumonia, unspecified organism; N17.9 Acute kidney failure, unspecified; E87.2 Acidosis; I13.0 Hypertensive heart and chronic kidney disease with heart failure and stage 1 through stage 4 chronic kidney disease, or unspecified chronic kidney disease; N18.4 Chronic kidney disease, stage 4 (severe); E87.8 Other disorders of electrolyte and fluid balance, not elsewhere classified; I50.9 Heart failure, unspecified; E86.9 Volume depletion, unspecified; M06.9 Rheumatoid arthritis, unspecified; T50.2X5A Adverse effect of carbonic-anhydrase inhibitors, benzothiadiazides and other diuretics, initial encounter; T46.4X5A Adverse effect of angiotensin-converting-enzyme inhibitors, initial encounter; E78.5 Hyperlipidemia, unspecified; M17.0 Bilateral primary osteoarthritis of knee; E66.9 Obesity, unspecified; Z68.32 Body mass index [BMI] 32.0-32.9, adult; Z79.82 Long term (current) use of aspirin; Z79.899 Other long term (current) drug therapy; Z71.3 Dietary counseling and surveillance; Z87.891 Personal history of nicotine dependence; Z87.01 Personal history of pneumonia (recurrent); Y92.009 Unspecified place in unspecified non-institutional (private) residence as the place of occurrence of the external cause
CPT/HCPCS: 36415; 71046; 80048; 80053; 81001; 83605; 85025; 85027; 85652; 86140; 86431; 87040; 93970; 96365; 96374; 99285